=== PATIENT | female | born 1995 | race Two or more races ===

== ENCOUNTER 2022-10-14 20:44 | Emergency (ER) | payer OTHER ==
[2022-10-14 21:34] LABS: CORONAVIRUS COVID-19 NAA POSITIVE (NEGATIVE)
[2022-10-14 21:36] LABS: STREP A BY PCR NOT DETECTED (NOT DETECT)
== END 2022-10-14 22:12 | disposition home or self-care (01) ==
LOC: JP.ED 20:44
DX: U07.1 COVID-19 (principal)
CPT/HCPCS: 87651-QW; 99283; U0002